=== PATIENT | female | born 1960 | race Caucasian/White ===

== ENCOUNTER 2016-11-05 19:03 | Emergency (ER) | payer MEDICAID, MEDICARE ==
--- NOTE | 2016-11-05 19:27 | ED PDOC ---
Arrival/HPI - General Time Seen by Provider: 11/05/16 19:20 Historian: Patient - History of Present Illness Narrative History of Present Illness (Text): 11/05/16 19:20 56 y/o female, no significant pmh, nkda, mentally challanged, post menopausal, c /o rt. sided facial injury hit against the wall x 1 hour. As per career technical counselor, the patient was walking down the stair tripped and hit the rt. sided facial cheek region against the wall, no change in vision, no eye complaints, no head injury, no LOC, no nausea or vomiting, no fever or chills, no other medical or psychological complaints. Past Medical History - Provider Review Nursing Documentation Reviewed: Yes Family/Social History - Physician Review Nursing Documentation Reviewed: Yes Family/Social History: Unknown Family HX Allergies/Home Meds Allergies/Adverse Reactions: Allergies No Known Allergies Allergy (Verified 11/05/16 19:28) Review of Systems - Review of Systems Constitutional: absent: Fatigue, Fevers Eyes: absent: Vision Changes ENT: absent: Hearing Changes Respiratory: absent: SOB, Cough Cardiovascular: absent: Chest Pain Gastrointestinal: absent: Abdominal Pain, Nausea, Vomiting Skin: Rash. absent: Pruritis, Skin Lesions, Laceration, Ulcer, Cellulitis Physical Exam Vital Signs Temp Pulse Resp BP Pulse Ox 11/05/16 19:03 98.1 F 76 16 127/80 98 - Systems Exam Head: Present: Atraumatic, Normocephalic, Other (Facial: +ttp and swelling noted on the rt. periorbital region with mild ecchymosis, ) Pupils: Present: PERRL Extroacular Muscles: Present: EOMI Conjunctiva: Present: Normal, Other (no hyphema or signs of trauma. ) Mouth: Present: Moist Mucous Membranes Nose (External): Present: Atraumatic. No: Abrasion, Contusion, Laceration, Lesions Nose (Internal): Present: Normal Inspection, No Active Bleeding. No: Rhinorrhea , Septal Hematoma, Epistaxis Neck: Present: Normal Range of Motion, Trachea Midline. No: MIDLINE TENDERNESS , Paraspinal Tenderness, Lymphadenopathy Respiratory/Chest: Present: Clear to Auscultation, Good Air Exchange. No: Respiratory Distress, Accessory Muscle Use Cardiovascular: Present: Regular Rate and Rhythm, Normal S1, S2. No: Murmurs Abdomen: Present: Normal Bowel Sounds. No: Tenderness, Distention, Peritoneal Signs Back: Present: Normal Inspection Upper Extremity: Present: Normal Inspection. No: Cyanosis, Edema Lower Extremity: Present: Normal Inspection. No: Edema Neurological: Present: GCS=15, Speech Normal, Motor Func Grossly Intact, Gait Normal, Memory Normal Skin: Present: Warm, Dry, Normal Color. No: Rashes Psychiatric: Present: Alert, Oriented x 3, Normal Insight, Normal Concentration Medical Decision Making ED Course and Treatment: 11/05/16 19:29 -CT facial -motrin -observe and reassess 11/05/16 22:08 -CT show no acute fracture or dislocation but there is soft tissue swelling -Discharge home with motrin, ice compression, follow up with your own pmd within 2 days, return to the ER for any new or worsening signs or symptoms. - RAD Interpretation Radiology Orders: 11/05/16 19:38 MAXILLOFACIAL W/O CONTRAST [CT] Stat COMPARISON: No relevant prior studies available. FINDINGS: Bones/joints: No acute fracture. Soft tissues: Edema in the soft tissues over the right zygoma. Orbits: Unremarkable. Sinuses: Unremarkable. No air-fluid levels. Dental: There is lucency about the roots of a few of the remaining teeth consistent with periodontal disease. Most of the teeth have been removed. IMPRESSION: Edema in the soft tissues over the right zygoma. Thank you for allowing us to participate in the care of your patient. Dictated and Authenticated by: Salas Mallory MD 11/05/2016 9:46 PM Eastern Time ([place] & [place]) Fruit Tester: Radiologist - Medication Orders Current Medication Orders: Discontinued Medications Ibuprofen (Motrin Tab) 600 mg PO STAT STA Stop: 11/05/16 19:39 Last Admin: 11/05/16 20:19 Dose: 600 mg - PA / MANAGER SOLUTION / Resident Statement / has reviewed & agrees with the documentation as recorded. Disposition/Present on Arrival - Present on Arrival Any Indicators Present on Arrival: No History of DVT/PE: No History of Uncontrolled Diabetes: No Urinary Catheter: No History of Decub. Ulcer: No - Disposition Have Diagnosis and Disposition been Completed?: Yes Diagnosis: Facial injury, Facial contusion Disposition: HOME/ ROUTINE Disposition Time: 19:29 Patient Plan: Discharge Patient Problems: Current Active Problems Problem Status Onset Facial injury Acute Condition: GOOD Additional Instructions: -Discharge home with motrin, ice compression, follow up with your own pmd within 2 days, return to the ER for any new or worsening signs or symptoms. Prescriptions: Ibuprofen [Motrin Tab] 600 mg PO QID PRN #[id number] tab PRN Reason: Other Referrals: [facility] [Outside] - Follow up with primary
[2016-11-05 19:38] VITALS: PULSE 76; RESP 16; TEMP 98.1
[2016-11-05 22:39] VITALS: BP 126/76; O2SAT 99
--- NOTE | 2016-11-06 07:45 | CT ---
PROCEDURE: CT MAXILLOFACIAL BONES WITHOUT CONTRAST HISTORY: rt. periorbital/facial COMPARISON: None TECHNIQUE: Contiguous axial CT images of the maxillofacial bones were obtained. Coronal and sagittal reformats were generated. Radiation dose: Total exam DLP = 762.95 mGy-cm. This CT exam was performed using one or more of the following dose reduction techniques: Automated exposure control, adjustment of the mA and/or kV according to patient size, and/or use of iterative reconstruction technique. FINDINGS: NASAL BONES: Unremarkable. ORBITS: Unremarkable. PARANASAL SINUSES/ MASTOIDS: No evidence of acute or chronic paranasal sinusitis. There is deviation of bony nasal septum towards the right in association with bony nasal spur. MAXILLA: Unremarkable. MANDIBLE/ TEMPOROMANDIBULAR JOINTS: Unremarkable. SKULL BASE: Unremarkable. TEMPORAL BONES: Middle ears and mastoid grossly unremarkable. OTHER FINDINGS: None. IMPRESSION: No evidence of fracture. Deviated nasal septum. Otherwise unremarkable examination. Preliminary interpretation of this examination was reported by [facility] at 9:46 p.m. on 11/05/2016. There is concurrence of this report with the preliminary interpretation.
== END 2016-11-05 22:39 | disposition home or self-care (01) ==
LOC: ED 19:03
DX: S00.83XA Contusion of other part of head, initial encounter (principal); W10.9XXA Fall (on) (from) unspecified stairs and steps, initial encounter; Y93.01 Activity, walking, marching and hiking